=== PATIENT | female | born 1945 | race Caucasian/White ===

== ENCOUNTER 2025-01-18 12:09 | Outpatient (AMB) | payer MEDICARE, SELFPAY ==
--- NOTE | 2025-01-18 12:16 | MHC.PC.OV ---
Vital Signs 01/18/25 12:37 Height 5 ft 2.57 in Weight 159 lb BMI 28.6 BP 115/72 Blood Pressure Location Rt brachial Position Sitting Respiration 14 Pulse 58 Pulse Source Pulse Oximeter Temp 97.8 F Temp Source Oral Pulse Oximetry (%) 98 Oxygen Delivery Method Room Air Intake Visit Reasons: Airline Hostess medication review Intake Note: New patient visit Mica Patcher Required: No Allergies warfarin [From Coumadin] Allergy (Severe, Verified 01/18/25 12:29) chin swelling Tobacco use date assessed: 01/18/25 Fall risk assessment: No Falls in past year Last assessed Fall Risk: 01/18/25 Dental Screening Dental Screen Date: 01/18/25 Did you have a dental visit in the last 12 months?: Yes Did you have a dental problem in the last 6 months where you did not have access to dental care?: No Was dental information given to patient?: Patient has dentist (has dentures) HPI HPI Comments History of Present Illness Details The patient is an 79 year old female with a past medical history of prediabetes, DVT, hypertension, hyperlipidemia, depression, PMR, FRANKY, OA presenting to [facility]. Transferring from Dr Bello-seen six weeks ago CV: On atorvastatin. Blood pressure is controlled on chlorathalidione and losartan. Her chlorthalidone was recently decreased -she is staking 25mg every other day. This changed tiers with her insurance and it seems she has not tolerated alternates in the past. She would like to change back to 25mg daiy as she notes BP was better controlled on daily dosing. She takes atorvastatin though she is hesitant to be on a statin in general. She was prescribed zetia but she has not started this as of yet. Depression-controlled on venlafaxine. Heme/onc: FRANKY. History of GIB. Combined NOAC for DVT and celebrex for OA. Follows at Dr Temple. Eliquis 2.5mg twice daily indefinite Prediabetes: She is trying to lose weight but has had difficulty with her arthritis. She is trying to eat smaller portions and walk as tolerated. MSK History of knee replacement. Hip replacement planned. Osteoporosis-recommended fosamax ROS CONSTITUTIONAL: Denies weight loss, fever and chills. HEENT: Denies changes in vision and hearing. RESPIRATORY: Denies SOB and cough. CV: Denies palpitations and CP GI: Denies abdominal pain, nausea, vomiting and diarrhea. : Denies dysuria and urinary frequency. MSK: Left calf tightness, intermittent pain. b/l intermittent LE neuropathy SKIN: Denies rash and pruritus. NEUROLOGICAL: Denies headache PSYCHIATRIC: Denies recent changes in mood. PHYSICAL EXAM: GENERAL: Alert and oriented x 3. NAD EYES: EOMI. Anicteric. HENT: Moist mucous membranes. No scleral icterus. No cervical lymphadenopathy. LUNGS: Clear to auscultation bilaterally. CARDIOVASCULAR: Regular rate and rhythm. No murmur. No JVD. ABDOMEN: Soft, non-tender +bs EXTREMITIES: Minimal left >right calf circumference chronic per patient. SKIN: No rashes or lesions. Warm. NEUROLOGIC: No focal neurological deficits. CN II-XII grossly intact PSYCHIATRIC: Cooperative. Appropriate mood and affect [facility] Medical History FH: cholecystectomy Surgical History H/O shoulder surgery History of hip replacement H/O section History of knee replacement Family History Mother Stroke HTN (hypertension) Father Heart disease HTN (hypertension) High cholesterol Social History Housing: House Alcohol intake: current Comment: Wine on special occassions Patient Tobacco Use Status: Former Tobacco user (quit 30 years ago) Cigarette Packs Per Day: 0.5 Years Smoked: 30 e-Cigarette/Vaping Use: Never Used Second Hand Smoke Exposure: No service: No Current occupational status: retired Cognitive needs: No Hearing needs: Yes (bilateral hearing aids) Vision needs: No Questionnaire PHQ-9 Over the last 2 weeks, how often have you been bothered by any of the following problems? 1. Little interest or pleasure in doing things: not at all 2. Feeling down, depressed, or hopeless: not at all 3. Trouble falling or staying asleep, or sleeping too much: not at all 4. Feeling tired or having little energy: not at all 5. Poor appetite or overeating: not at all 6. Feeling bad about yourself - or that you are a failure or have let yourself or your family down: not at all 7. Trouble concentrating on things, such as reading the newspaper or watching television: not at all 8. Moving or speaking so slowly that other people could have noticed. Or the opposite - being so fidgety or restless that you have been moving around a lot more than usual: not at all 9. Thoughts that you would be better off or of hurting yourself in some way: not at all Total score: 0 Depression Screening Interpretation: Negative Depression Screening Done: Yes 56630 - PHQ-9 Billing: Yes Source: Developed by Drs. Manuel Lopez, Lorenza Freire, Jose R Lr and colleagues, with an educational rachel from [employer]. Thrive Questionnaire Date Thrive assessed: 01/18/25 I am a: Patient What is your living situation today?: I have a steady place to live Within the past 12 months, did the food you bought not last and you didn't have the money to get more?: Never true Within the past 12 months, did you worry whether your food would run out before you got money to buy more?: Never true Do you have trouble paying for medicines?: No Do you have trouble getting transportation to medical appointments?: No Do you have trouble paying your heating and electricity bill?: No Do you have trouble taking care of your child, family member or friend?: No Do you have trouble with day-to-day activities such as bathing, preparing meals, shopping, managing finances, etc.?: No Are you currently unemployed and looking for a job?: No Are you interested in more education?: No Please select the resources that you would like help with: None Currently or been in a relationship where the following occur: No concerns reported THRIVE Score: 0 AUDIT C Alcohol Use Questionnaire (AUDIT-C) 1. How often do you have a drink containing alcohol?: Never 3. How often do you have six or more drinks on one occasion?: Never Total Score: 0 FRANCIS-7 AMB Questionnaire FRANCIS-7 Date FRANCIS - 7 assessed: 01/18/25 Feeling nervous, anxious, or on edge: 1 = Several days Not being able to stop or control worryin = Not at all Worrying too much about different things: 1 = Several days Trouble relaxin = Not at all Being so restless that it is hard to sit still: 0 = Not at all Becoming easily annoyed or irritable: 0 = Not at all Feeling afraid as if something awful might happen: 0 = Not at all Total FRANCIS-7 score (0-4 normal; 5-9 mild; 10-14 moderate; 15-21 severe): 2 Source: Developed by Drs. Manuel Lopez, Lorenza Freire, Jose R Lr and colleagues, with an educational rachel from [employer]. FRANCIS-7 Assessment Billing FRANCIS-7 Assessment Tool: FRANCIS-7 Assessment 55795 Physical exam (Primary Care) Vital Signs: Last Vital Signs Temp 97.8 F 01/18/25 12:37 Pulse 58 01/18/25 12:37 Resp 14 01/18/25 12:37 BP 115/72 01/18/25 12:37 Pulse Ox 98 01/18/25 12:37 Oxygen Delivery Method Room Air 01/18/25 12:37 BMI result Body Mass Index 28.6 Tobacco/Smoking Status: Tobacco use Status Tobacco use date assessed 01/18/25 01/18/25 12:36 Patient Tobacco Use Status Former Tobacco user (quit 30 01/18/25 12:36 years ago) e-Cigarette/Vaping Use Never Used 01/18/25 12:36 PHQ-9: PHQ-9 Score PHQ-9: Total score 0 01/18/25 14:15 Depression Screening Interpretation: Negative Thrive Assessment: Date of Thrive Assessment Date Thrive assessed 01/18/25 01/18/25 14:15 Currently or been in a relationship where the following occur: No concerns reported Coding Level of Care Code New Pt Level 4 (34232) Complex EM visit Add On G2211 Diagnoses Elevated d-dimer R79.89 Pain of left calf M79.662 Prediabetes R73.03 Hyperlipidemia, unspecified hyperlipidemia type E78.5 Hyperlipidemia type: unspecified Primary hypertension I10 Hypertension type: primary hypertension Additional Codes FRANCIS-7 Assessment Billing - FRANCIS-7 Assessment Tool: FRANCIS-7 Assessment 81130 ([id number]) PHQ-9 - 93087 - PHQ-9 Billing: Yes ([id number]) Assessment & Plan Assessment & Plan (1) Elevated d-dimer: Code(s): R79.89 - Other specified abnormal findings of blood chemistry Category: Medical Plan: us ordered by configuration management advisor provider (2) Pain of left calf: Code(s): M79.662 - Pain in left lower leg Category: Medical (3) Prediabetes: Code(s): R73.03 - Prediabetes Category: Medical (4) Hyperlipidemia: Code(s): E78.5 - Hyperlipidemia, unspecified Category: Medical Qualifiers: Hyperlipidemia type: unspecified Qualified Code(s): E78.5 - Hyperlipidemia, unspecified (5) Hypertension: Code(s): I10 - Essential (primary) hypertension Category: Medical Qualifiers: Hypertension type: primary hypertension Qualified Code(s): I10 - Essential (primary) hypertension Plan 79 year old to establish care Past medical, surgical, social reviewed Elevated ddimer-us ordered-will f/up results HTN well controlled. She can revert to chlorthalidone daily, continue losartan Orders: Orders Comprehensive Met. Panel 01/18/25 E78.5 - Hyperlipidemia, unspecified, I10 - Essential (primary) hypertension, R73.03 - Prediabetes Lipid Panel 01/18/25 E78.5 - Hyperlipidemia, unspecified, I10 - Essential (primary) hypertension, R73.03 - Prediabetes Magnesium 01/18/25 M79.606 - Pain in leg, unspecified IRON PROFILE 01/18/25 M79.606 - Pain in leg, unspecified Hemoglobin A1c 01/18/25 R73.03 - Prediabetes D Dimer High Sensitivity 01/18/25 M79.662 - Pain in left lower leg Vitamin B12 and Folate 01/18/25 M79.606 - Pain in leg, unspecified Medications: New chlorthalidone 25 mg PO DAILY 90 tabs 3RF
[2025-01-18 12:37] VITALS: BP 115/72; PULSE 58; RESP 14; TEMP 36.6; O2SAT 98; BMI 28.6
--- OUTSIDE RECORDS SUMMARY | 2025-01-18 13:35 | XMS_ITS | Clinical Summary ---
Author Organization [facility] Address [address] [place] [phone] Phone Care Team Providers Care Heel Lining Paster Name Role Phone Joseph Ronquillo MD Primary Care Provider [phone] Allergies Active Allergy Reactions Criticality Noted Date Comments Warfarin 06/14/2023 Medications apixaban (Eliquis) 5 mg tablet Take 1 tablet (5 mg total) by mouth 2 (two) times a day. 06/08/2023 Active chlorthalidone (HYGROTON) 25 mg tablet Take 1 tablet (25 mg total) by mouth daily. 04/23/2023 Active docusate sodium (COLACE) 100 mg capsule Take 1 capsule (100 mg total) by mouth 2 (two) times a day. 04/19/2023 Active venlafaxine XR (EFFEXOR-XR) 150 mg 24 hr capsule Take 1 capsule (150 mg total) by mouth daily. 05/10/2023 Active atorvastatin (LIPITOR) 80 mg tablet Take 40 mg by mouth 1 (one) time each day. 04/10/2024 Active losartan (COZAAR) 25 mg tablet Take 1 tablet (25 mg total) by mouth 1 (one) time each day. 06/12/2024 Active Eliquis 2.5 mg tablet TAKE 1 TABLET BY MOUTH EVERY 12 HOURS. 60 tablet 5 08/18/2024 Active Active Problems Problem Noted Date Diagnosed Date Acute embolism and thrombosi s of left tibial vein (CMS/HCC V24, CMS/HCC V28) 07/20/2022 Anemia, unspecified 08/05/2000 Encounters Date Type Department Care Team Description 01/13/2025 11:30 AM EDT Office Visit [facility] Hematology Oncology [address] [place] [phone] Monty Claros MD Acute embolism and thrombosis of left tibial vein ([facility] V24, [facility] V28) (Primary Dx) from Last 3 Months Immunizations Name Administration Dates Next Due Pfizer SARS-CoV-2 COVID-19, mRNA, LNP-S, preservative free 05/04/2021,10/03/2020,09/05/2020 Surgical History Surgery Date Site/Laterality Comments TOTAL HIP ARTHROPLASTY PROCEDURE:TOTAL HIP ARTHROPLASTY SECTION PROCEDURE: SECTION CHOLECYSTECTOMY PROCEDURE:CHOLECYSTECTOMY TOTAL KNEE ARTHROPLASTY Bilateral PROCEDURE:TOTAL KNEE ARTHROPLASTY Medical History Medical History Date Comments Hypertension DX:Hypertension Anemia DX:Anemia Social History Tobacco Use Types Packs/Day Years Used Date Smoking Tobacco: Former Smokeless Tobacco: Never Alcohol Use Standard Drinks/Week Comments Yes 1 (1 standard drink = 0.6 oz pur e alcohol) Comments Unknown Sex and Gender Information Value Date Recorded Sex Assigned at Not on file Legal Sex Female 9:03 PM EST Gender Identity Not on file Sexual Orientation Not on file Obstetrics History Last Filed Vital Signs Vital Sign Reading Time Taken Comments Blood Pressure 148/57 01/13/2025 11:29 AM EDT Pulse 66 01/13/2025 11:29 AM EDT Temperature 36.1 ??C (97 ??F) 01/13/2025 11:29 AM EDT Respiratory Rate - - Oxygen Saturation 97% 01/13/2025 11:29 AM EDT Inhaled Oxygen Concentration - - Weight 85.7 kg (189 lb) 01/13/2025 11:29 AM EDT Height 157.5 cm (5' 2 ) 01/13/2025 11:29 AM EDT Body Mass Index 34.57 01/13/2025 11:29 AM EDT Plan of Treatment Upcoming Encounters Date Type Department Care Team (Late st Contact Info) Description 01/13/2026 11:30 AM EDT Office Visit [facility] Hematology Oncology [address] [place] [phone] Monty Claros MD [address] [place] [phone] Health Maintenance Due Date Last Done Comments DTaP,Tdap,and Td Vaccines (1 - Tdap) 1963 Zoster Vaccines (1 of 2) 1994 Cholesterol Screening (Lipid Panel) 08/30/2023 Depression Screening 08/30/2023 Falls Risk Assessment 08/30/2023 Medicare Annual Wellness Visit 08/30/2023 Osteoporosis Screening (Bone Density Screening) 08/30/2023 Social Influencers of Health Screening 08/30/2023 COVID-19 Vaccine ( season) 2024 05/04/2021, 10/03/2020, 09/05/2020 Hypertension/CHF/CAD Annual BMP Blood Test 07/15/2024 Pneumococcal Vaccine: 50+ Years Completed 04/11/2023, 06/06/2018, 06/07/2014, Additional history exists Influenza Vaccine Completed 04/29/2024, , 07/06/2022, Additional history exists RSV Immunization Adult Patients Completed 05/22/2024 HIB Vaccines Aged Out No longer eligi ble based on patient's age to complete this topic HPV Vaccines Aged Out No longer eligi ble based on patient's age to complete this topic Hepatitis A Vaccines Aged Out No long er eligible based on patient's age to complete this topic Hepatitis B Vaccines Aged Out No long er eligible based on patient's age to complete this topic IPV Vaccines Aged Out No longer eligi ble based on patient's age to complete this topic MMR Vaccines Aged Out No longer eligi ble based on patient's age to complete this topic Meningococcal ACWY Vaccine Aged Out N o longer eligible based on patient's age to complete this topic Meningococcal B Vaccine Aged Out No l onger eligible based on patient's age to complete this topic RSV Immunization Patients Under 20 months Aged Out No longer eligible based on patient's age to complete this topic Varicella Vaccines Aged Out No longer eligible based on patient's age to complete this topic Insurance MEDICARE [facility] Care Teams Heel Lining Paster Relationship Specialty Start Date End Date Joseph Ronquillo MD [address] [place] [address] PCP - General 01/15/23
== END 2025-01-18 13:02 | disposition home or self-care (01) ==
LOC: HO.HMCFM 12:10
PROVIDERS: PCP Internal Medicine; Visit Provider Internal Medicine
DX: R79.89 Other specified abnormal findings of blood chemistry (principal); M79.662 Pain in left lower leg; R73.03 Prediabetes; E78.5 Hyperlipidemia, unspecified; I10 Essential (primary) hypertension

== ENCOUNTER → 2025-01-18 12:09 | Outpatient (BNVA) | payer MEDICARE, SELFPAY | PROVIDERS: PCP Internal Medicine; Visit Provider Internal Medicine | DX: R79.89 Other specified abnormal findings of blood chemistry (principal); M79.662 Pain in left lower leg; R73.03 Prediabetes; E78.5 Hyperlipidemia, unspecified; I10 Essential (primary) hypertension; Z79.899 Other long term (current) drug therapy | CPT/HCPCS: 96127; 99202 ==

== ENCOUNTER 2025-01-18 13:38 | Outpatient (REF) | payer MEDICARE, SELFPAY ==
[2025-01-18 18:06] LABS: Alanine Aminotransferase 18 U/L (0-31); Albumin Level 4.4 g/dL (3.5-5.0); Alkaline Phosphatase 77 U/L (39-117); Anion Gap 15 (12-20); Aspartate Amino Transferase 26 U/L (5-31); Bilirubin Total 0.6 mg/dL (0.0-1.0); Blood Urea Nitrogen 21 mg/dL (9-16); Calcium 9.7 mg/dL (8.4-10.2); Carbon Dioxide 24 mmol/L (22-29); Chloride 106 mmol/L (96-108); Cholesterol 183 mg/dL (<200); Estimated Glomerular Filt Rate > 60; Glucose Random 109 mg/dL (60-115); HDL Cholesterol 39 mg/dL (>40); Iron 111 mcg/dL (30-160); LDL Cholesterol Calculated 113 mg/dL (<100); Percent Iron Saturation 38 % (15-50); Potassium 3.8 mmol/L (3.3-5.1); Sodium 141 mmol/L (135-145); Total Iron Binding Capacity 293 mcg/dL (228-428); Total Protein 7.4 g/dL (6.5-8.0); Triglycerides 157 mg/dL (<150); Unsaturated Iron Binding 182 ug/dL
[2025-01-18 18:16] LABS: D Dimer High Sensitivity 268 NG/ML
[2025-01-18 18:37] LABS: Folate 8.3 ng/mL (> or = 4.0); Vitamin B12 514 pg/mL (200-900)
[2025-01-19 05:41] LABS: Estimated Average Glucose 126 mg/dL; Total Hemoglobin (HGBA1C) 3509.0436 umol/L
== END 2025-01-18 13:39 | disposition home or self-care (01) ==
LOC: HO.WFDLDS 13:38
PROVIDERS: Visit Provider Internal Medicine
DX: M79.662 Pain in left lower leg (principal); R73.03 Prediabetes; E78.5 Hyperlipidemia, unspecified; I10 Essential (primary) hypertension
CPT/HCPCS: 36415; 80053; 80061; 82607; 82746; 83036; 83540; 83735; 85379

== ENCOUNTER 2025-05-24 11:29 | Outpatient (AMB) | payer MEDICARE, SELFPAY ==
--- NOTE | 2025-05-24 11:35 | MHC.OFFVIS ---
Vital Signs 05/24/25 11:43 Height 5 ft 2.57 in Weight 190 lb 4 oz BMI 34.2 BP 122/60 Blood Pressure Location Rt brachial Position Sitting Respiration 18 Pulse 57 Pulse Source Pulse Oximeter Temp 98 F Temp Source Oral Pulse Oximetry (%) 97 Oxygen Delivery Method Room Air Intake Visit Reasons: Hypertension Intake Note: hypertension and wheezing Community Development Coordinator Required: No Allergies warfarin (From Coumadin) Allergy (Severe, Verified 05/24/25 11:38) chin swelling HPI Comments Details: The patient is an 80 year old female with a past medical history of prediabetes, DVT, hypertension, hyperlipidemia, depression, PMR, FRANKY, OA presenting for follow up CV: On atorvastatin. Blood pressure is controlled on chlorathalidione and losartan. She takes atorvastatin though she is hesitant to be on a statin in general. She was prescribed zetia but she has not started this as of yet. Depression-on venlafaxine 150mg. She would like to increase the dose. She has been feeling more depression, unmotivated. Heme/onc: FRANKY. History of GIB. Combined NOAC for DVT and celebrex for OA. Follows at Dr Temple. Eliquis 2.5mg twice daily indefinite Prediabetes: She is trying to lose weight but has had difficulty with her arthritis. She is trying to eat smaller portions and walk as tolerated. MSK History of knee replacement, hip replacement Osteoporosis-on fosamax Asthma- albuterol prn ROS CONSTITUTIONAL: Denies weight loss, fever and chills. HEENT: Denies changes in vision and hearing. RESPIRATORY: Denies SOB and cough. CV: Denies palpitations and CP GI: Denies abdominal pain, nausea, vomiting and diarrhea. : Denies dysuria and urinary frequency. MSK: Left calf tightness, intermittent pain. b/l intermittent LE neuropathy SKIN: Denies rash and pruritus. NEUROLOGICAL: Denies headache PSYCHIATRIC: Denies recent changes in mood. PHYSICAL EXAM: GENERAL: Alert and oriented x 3. NAD EYES: EOMI. Anicteric. HENT: Moist mucous membranes. No scleral icterus. No cervical lymphadenopathy. LUNGS: Clear to auscultation bilaterally. CARDIOVASCULAR: Regular rate and rhythm. No murmur. No JVD. ABDOMEN: Soft, non-tender +bs EXTREMITIES: Minimal left >right calf circumference chronic per patient. SKIN: No rashes or lesions. Warm. NEUROLOGIC: No focal neurological deficits. CN II-XII grossly intact PSYCHIATRIC: Cooperative. Appropriate mood and affect [facility] Medical History FH: cholecystectomy Surgical History H/O shoulder surgery History of hip replacement H/O section History of knee replacement Family History Mother Stroke HTN (hypertension) Father Heart disease HTN (hypertension) High cholesterol Social History Housing: House Alcohol intake: current Comment: Wine on special occassions Patient Tobacco Use Status: Former Tobacco user (quit 30 years ago) Cigarette Packs Per Day: 0.5 Years Smoked: 30 e-Cigarette/Vaping Use: Never Used Second Hand Smoke Exposure: No service: No Current occupational status: retired Cognitive needs: No Hearing needs: Yes (bilateral hearing aids) Vision needs: No Physical Exam Vital Signs: Last Vital Signs Temp 98 F 05/24/25 11:43 Pulse 57 05/24/25 11:43 Resp 18 05/24/25 11:43 BP 122/60 05/24/25 11:43 Pulse Ox 97 05/24/25 11:43 Oxygen Delivery Method Room Air 05/24/25 11:43 BMI result Body Mass Index 34.2 Assessment & Plan Assessment & Plan (1) Hypertension: Code(s): I10 - Essential (primary) hypertension Category: Medical Qualifiers: Hypertension type: primary hypertension Qualified Code(s): I10 - Essential (primary) hypertension (2) Hyperlipidemia: Code(s): E78.5 - Hyperlipidemia, unspecified Category: Medical (3) Prediabetes: Code(s): R73.03 - Prediabetes Category: Medical (4) Osteoarthritis: Code(s): M19.90 - Unspecified osteoarthritis, unspecified site Category: Medical Qualifiers: Osteoarthritis location: multiple joints Osteoarthritis type: unspecified Qualified Code(s): M15.9 - Polyosteoarthritis, unspecified Plan 80 year old female presenting for follow up HTN-controlled on current medication Depression-Increase venlafaxine to 225mg Asthma-predniosone, zpak Osteoporosis-continue fosamax Medications: New albuterol sulfate 90 mcg/actuation (Ventolin HFA) 2 puffs inhalation Q6H PRN 8.5 grams 0RF shortness of breath or wheezing prednisone 40 mg (2 x 20 mg) PO DAILY 10 tabs 0RF azithromycin For 250 mg dose pack: take 500 mg today (day 1), then 250 mg for 4 days (days 2-5) PO 6 tabs 0RF venlafaxine ER 225 mg (3 x 75 mg) PO DAILY 270 caps 3RF 90 days Discontinued venlafaxine ER Discontinued Reason: Doctor's Order 150 mg PO DAILY 30 caps 0RF Coding Level of Care Code Est Pt Level 4 (46986) Complex EM visit Add On G2211 Diagnoses Primary hypertension I10 Hypertension type: primary hypertension Hyperlipidemia E78.5 Prediabetes R73.03 Osteoarthritis of multiple joints, unspecified osteoarthritis type M15.9 Osteoarthritis location: multiple joints Osteoarthritis type: unspecified
[2025-05-24 11:43] VITALS: BP 122/60; PULSE 57; RESP 18; TEMP 36.6; O2SAT 97; BMI 34.2
== END 2025-05-24 12:05 | disposition home or self-care (01) ==
LOC: HO.HMCFM 11:30
PROVIDERS: PCP Internal Medicine; Visit Provider Internal Medicine
DX: I10 Essential (primary) hypertension (principal); E78.5 Hyperlipidemia, unspecified; R73.03 Prediabetes; M15.9 Polyosteoarthritis, unspecified

== ENCOUNTER → 2025-05-24 11:29 | Outpatient (BNVA) | payer MEDICARE, SELFPAY | PROVIDERS: PCP Internal Medicine; Visit Provider Internal Medicine | DX: I10 Essential (primary) hypertension (principal); E78.5 Hyperlipidemia, unspecified; R73.03 Prediabetes; M15.9 Polyosteoarthritis, unspecified; F32.A Depression, unspecified; J45.909 Unspecified asthma, uncomplicated; M81.0 Age-related osteoporosis without current pathological fracture; Z86.718 Personal history of other venous thrombosis and embolism; Z79.01 Long term (current) use of anticoagulants; Z79.899 Other long term (current) drug therapy | CPT/HCPCS: 99212 ==